=== PATIENT | male | born 1960 | race Asian ===

== ENCOUNTER 2023-07-12 12:47 | Emergency (ER) | payer BC ==
[~2023-07-12] VITALS: Ht 177.8 cm; Wt 70.3 kg
[2023-07-12 13:05] VITALS: BP 99/82; TEMP 98; O2SAT 98
== END 2023-07-12 13:55 | disposition left against medical advice (07) ==
LOC: ER 12:47
DX: R21 Rash and other nonspecific skin eruption (principal); Z53.21 Procedure and treatment not carried out due to patient leaving prior to being seen by health care provider